=== PATIENT | female | born 1970 | race Caucasian/White ===

== ENCOUNTER 2017-11-08 22:20 | Emergency (ER) | payer BC, SELFPAY ==
[2017-11-08] MEDS ORDERED: Dexamethasone 4 MG TAB ONE (23:43)
[2017-11-08] MEDS ORDERED: Benzonatate 100 MG CAP ONE (23:43)
[2017-11-08] MEDS ORDERED: HYDROcodone/Acetaminophen 5/325 mg Tablet ONE (23:43)
[2017-11-08] MEDS ORDERED: Azithromycin 250 MG TAB ONE (23:45)
--- NOTE | 2017-11-08 23:56 | RAD ---
RADIOGRAPH CHEST 2 VIEWS: HISTORY: 47-year-old female with cough. FINDINGS: There is no air space density, pulmonary edema, pleural effusion, pneumothorax, or cardiomegaly. IMPRESSION: No acute cardiopulmonary findings. rae POS: [facility]
== END 2017-11-09 00:14 | disposition home or self-care (01) ==
LOC: MADERS 22:20
DX: J18.9 Pneumonia, unspecified organism (principal); Z87.891 Personal history of nicotine dependence
CPT/HCPCS: 71046; J8540

== ENCOUNTER 2018-03-02 12:58 | Emergency (ER) | payer BC ==
[2018-03-02 14:19] LABS: #Eosinphils 0.1 thou/uL (0.0-0.7); #Lymphocytes 1.4 thou/uL (1.20-3.40); #Monocytes 0.3 thou/uL (0.11-0.59); %Basophils 0.7 % (0.0-1.0); %Eosinophils 2.8 % (0.0-10.0); %Lymphocytes 27.9 % (21.0-51.0); %Monocytes 6.7 % (0.0-10.0); %Neutrophils 61.9 % (42.0-75.0); Hemoglobin 13.8 g/dL (12.0-16.0); Mean Corpuscular HGB CONC 31.2 g/dL (32.0-36.0); Mean Corpuscular Hemoglobin 31.5 pg (27.0-31.0); Mean Platelet Volume 6.5 fL (7.4-10.4); Platelet Count 275 thou/uL (130-400); RBC Distribution Width 12.3 % (11.5-14.5); Red Blood Cell (RBC) Count 4.39 mill/uL (4.20-5.40); White Blood Cell (WBC) Count 4.9 thou/uL (4.8-10.8)
--- NOTE | 2018-03-02 14:29 | RAD ---
PA AND LATERAL CHEST: Date: 03/02/18 HISTORY: Cough. FINDINGS: Comparison made with exam of 11/08/17. The heart size is borderline. No focal areas of consolidation, pneumothoraces, ella pulmonary edema, or pleural effusions seen. IMPRESSION: No acute process. POS: [facility]
[2018-03-02 14:42] LABS: ALT (SGPT) 12 U/L (8-55); AST (SGOT) 14 U/L (5-34); Albumin 3.3 g/dL (3.5-5.0); Alkaline Phosphatase 98 U/L (40-150); Anion Gap 14 mmol/L (10-20); BUN (Urea Nitrogen) 12 mg/dL (7.0-18.7); Bilirubin, Total Less than 0.2 mg/dL (0.2-1.2); Calc. Creatinine Clearance 0 mL/min (70-130); Calcium 9.1 mg/dL (7.8-10.44); Carbon Dioxide 31 mmol/L (22-29); Chloride 102 mmol/L (98-107); Estimated GFR-MDRD 89; Globulin 3.2 g/dL (2.4-3.5); Glucose 107 mg/dL (70-105); Potassium 4.5 mmol/L (3.5-5.1); Protein, Total 6.5 g/dL (6.0-8.3); Sodium 142 mmol/L (136-145)
== END 2018-03-02 15:24 | disposition home or self-care (01) ==
LOC: MADERS 12:58
DX: J40 Bronchitis, not specified as acute or chronic (principal); Z87.891 Personal history of nicotine dependence
CPT/HCPCS: 36415; 71046; 80053; 84484; 85025; 87804; 93005; J7620

== ENCOUNTER 2018-06-18 20:26 | Emergency (ER) | payer BC ==
[2018-06-18] MEDS ORDERED: HYDROcodone/Acetaminophen 5/325 mg Tablet ONE (21:51)
[2018-06-18] MEDS ORDERED: Cyclobenzaprine 10 MG TAB ONE (21:52)
[2018-06-18] MEDS ORDERED: Ibuprofen 800 MG TAB ONE (21:52)
== END 2018-06-18 22:05 | disposition home or self-care (01) ==
LOC: MADERS 20:26
DX: S30.0XXA Contusion of lower back and pelvis, initial encounter (principal); J45.909 Unspecified asthma, uncomplicated; F17.210 Nicotine dependence, cigarettes, uncomplicated; Z79.51 Long term (current) use of inhaled steroids; Z79.899 Other long term (current) drug therapy; W06.XXXA Fall from bed, initial encounter
CPT/HCPCS: 99283

== ENCOUNTER 2018-10-03 19:25 | Emergency (ER) | payer BC ==
[2018-10-03 20:35] LABS: Bilirubin Negative (Negative); Blood, Urine Small (Negative); Clarity Clear (Clear); Glucose, Urine (Dipstick) Negative (Negative); Leukocyte Negative (Negative); Nitrite Negative (Negative); Protein, Urine (Dipstick) > or equal to 300 mg/dL (Neg-Trace); Urobilinogen 0.2 mg/dL (Less than 2)
[2018-10-03 20:51] LABS: #Basophils 0.1 thou/uL (0.0-0.2); #Eosinphils 0.1 thou/uL (0.0-0.7); #Lymphocytes 1.5 thou/uL (1.20-3.40); #Monocytes 0.4 thou/uL (0.11-0.59); #Neutrophils 4.3 thou/uL (1.40-6.50); %Basophils 1.1 % (0.0-1.0); %Eosinophils 1.9 % (0.0-10.0); %Lymphocytes 23.1 % (21.0-51.0); %Monocytes 6.7 % (0.0-10.0); %Neutrophils 67.1 % (42.0-75.0); Hemoglobin 14.5 g/dL (12.0-16.0); Mean Corpuscular Hemoglobin 30.5 pg (27.0-31.0); Mean Corpuscular Volume 95.3 fL (78.0-98.0); Mean Platelet Volume 6.1 fL (7.4-10.4); Platelet Count 283 thou/uL (130-400); RBC Distribution Width 12.4 % (11.5-14.5); Red Blood Cell (RBC) Count 4.76 mill/uL (4.20-5.40); White Blood Cell (WBC) Count 6.4 thou/uL (4.8-10.8)
[2018-10-03] MEDS ORDERED: Lidocaine Viscous Sol 2% 15 ml UD Cup ONE (20:51)
[2018-10-03] MEDS ORDERED: Mag-Al Plus 1200 MG/1200 MG/120 MG/30 ML UDCUP ONE (20:51)
[2018-10-03] MEDS ORDERED: Famotidine 20 MG TAB ONE (20:51)
[2018-10-03] MEDS ORDERED: Dicyclomine 10 MG CAP ONE (20:52)
[2018-10-03 20:53] LABS: Bacteria/HPF 1+ HPF (None Seen); RBC/HPF 0-3 HPF (0-3); WBC/HPF 0-3 HPF (0-3)
[2018-10-03] MEDS ORDERED: Ondansetron ODT 4 MG TAB ONE (20:54)
--- NOTE | 2018-10-03 20:56 | RAD ---
Chest one view HISTORY: Chest pain. COMPARISON: 05/11/2018. FINDINGS: Cardiac silhouette is magnified and enlarged. Pulmonary vasculature slightly engorged. Medi astinum is midline. No lobar consolidation or evidence of pneumothorax IMPRESSION: Cardiomegaly. Mild pulmonary vascular congestion.
[2018-10-03 21:01] LABS: ALT (SGPT) 13 U/L (8-55); AST (SGOT) 13 U/L (5-34); Albumin 3.4 g/dL (3.5-5.0); Alkaline Phosphatase 108 U/L (40-150); Anion Gap 13 mmol/L (10-20); BUN (Urea Nitrogen) 13 mg/dL (7.0-18.7); Bilirubin, Total 0.2 mg/dL (0.2-1.2); Calc. Creatinine Clearance 0 mL/min (70-130); Calcium 9.3 mg/dL (7.8-10.44); Carbon Dioxide 31 mmol/L (22-29); Chloride 101 mmol/L (98-107); Estimated GFR-MDRD 84; Globulin 3.4 g/dL (2.4-3.5); Glucose 94 mg/dL (70-105); Lipase 21 U/L (8-78); Potassium 4.4 mmol/L (3.5-5.1); Protein, Total 6.8 g/dL (6.0-8.3); Sodium 141 mmol/L (136-145)
== END 2018-10-03 22:10 | disposition home or self-care (01) ==
LOC: MADERS 19:25
DX: K21.9 Gastro-esophageal reflux disease without esophagitis (principal); J45.909 Unspecified asthma, uncomplicated; F17.210 Nicotine dependence, cigarettes, uncomplicated; Z79.51 Long term (current) use of inhaled steroids; Z79.899 Other long term (current) drug therapy
CPT/HCPCS: 71045; 80053; 81003; 81015; 83605; 83690; 83880; 84484; 85025; 93005; J0500; Q0162

== ENCOUNTER 2019-09-10 19:41 | Emergency (ER) | payer BC | END 2019-09-10 20:35 | disposition home or self-care (01) | LOC: MADERS 19:41 | DX: T16.1XXA Foreign body in right ear, initial encounter (principal); J45.909 Unspecified asthma, uncomplicated; F17.210 Nicotine dependence, cigarettes, uncomplicated; Z79.899 Other long term (current) drug therapy ==

== ENCOUNTER 2019-10-23 09:21 | Outpatient (CLI) | payer BC ==
[2019-10-23 09:47] LABS: #Eosinphils 0.1 thou/uL (0.0-0.7); #Lymphocytes 1.3 thou/uL (1.20-3.40); #Monocytes 0.3 thou/uL (0.11-0.59); #Neutrophils 2.9 thou/uL (1.40-6.50); %Basophils 0.9 % (0.0-1.0); %Eosinophils 1.7 % (0.0-10.0); %Lymphocytes 28.1 % (21.0-51.0); %Monocytes 5.6 % (0.0-10.0); %Neutrophils 63.7 % (42.0-75.0); Hemoglobin 15.2 g/dL (12.0-16.0); Mean Corpuscular HGB CONC 31.9 g/dL (32.0-36.0); Mean Corpuscular Hemoglobin 31.3 pg (27.0-31.0); Mean Corpuscular Volume 98.2 fL (78.0-98.0); Mean Platelet Volume 6.1 fL (7.4-10.4); Platelet Count 303 thou/uL (130-400); RBC Distribution Width 12.7 % (11.5-14.5); Red Blood Cell (RBC) Count 4.86 mill/uL (4.20-5.40); White Blood Cell (WBC) Count 4.6 thou/uL (4.8-10.8)
[2019-10-23 09:51] LABS: INR-International Normal Ratio 0.9; PTT 29.2 sec (22.9-36.1); Prothrombin Time 11.9 sec (12.0-14.7)
[2019-10-23 10:02] LABS: ALT (SGPT) 16 U/L (8-55); AST (SGOT) 15 U/L (5-34); Albumin 3.3 g/dL (3.5-5.0); Alkaline Phosphatase 93 U/L (40-110); Anion Gap 14 mmol/L (10-20); BUN (Urea Nitrogen) 12 mg/dL (7.0-18.7); Bilirubin, Total 0.2 mg/dL (0.2-1.2); Calc. Creatinine Clearance 0 mL/min (70-130); Carbon Dioxide 33 mmol/L (22-29); Chloride 99 mmol/L (98-107); Estimated GFR-MDRD 86; Globulin 3.6 g/dL (2.4-3.5); Glucose 97 mg/dL (70-105); Potassium 4.6 mmol/L (3.5-5.1); Protein, Total 6.9 g/dL (6.0-8.3); Sodium 141 mmol/L (136-145)
--- NOTE | 2019-10-23 10:51 | RAD ---
LUMBAR SPINE 4 VIEWS: HISTORY: Back pain. FINDINGS: Exam includes right and left oblique views. There is very severe rotary dextroscoliosis of the upper lumbar lower thoracic vertebral column with some extensive hypertrophic osteophytosis. The vertebrae are very poorly defined at the level of the T11 through L1 region. There may well be some associated developmental anomalous changes at this le dwight. Generalized disk-osteophytosis and facet arthrosis. IMPRESSION: Severe dextroscoliosis with rotational changes of the upper lumbar lower thoracic vertebral column wi th very poor definition of the vertebral bodies in this region, possibly related to developmental ano malous changes. Depending upon concern, a followup CT scan of the lumbar thoracic spine versus MRI e xamination of the lumbar and thoracic spine is recommended for further assessment. POS: [facility]
[2019-10-23 14:25] LABS: Hemoglobin A1c 5.8 % (4.0-6.0)
[2019-10-23 14:36] LABS: Follow-up Chemistry Comp? YES; Follow-up Result - Chemistry REPORT FAXED
== END 2019-10-23 09:22 | disposition home or self-care (01) ==
LOC: MADLAB 09:21
PROVIDERS: ATTEND Family Medicine
DX: M54.5 Low back pain (principal); R29.6 Repeated falls; M41.9 Scoliosis, unspecified; Z86.73 Personal history of transient ischemic attack (TIA), and cerebral infarction without residual deficits
CPT/HCPCS: 36415; 72110; 80053; 83036; 85025; 85610; 85730

== ENCOUNTER 2020-12-15 21:03 | Emergency (ER) | payer BC ==
[2020-12-15] MEDS ORDERED: Cyclobenzaprine 10 MG TAB ONE (21:56)
[2020-12-15] MEDS ORDERED: Ibuprofen 400 MG TAB ONE (21:56)
== END 2020-12-15 22:00 | disposition home or self-care (01) ==
LOC: MADERS 21:03
DX: M71.22 Synovial cyst of popliteal space [Baker], left knee (principal); M17.0 Bilateral primary osteoarthritis of knee; I10 Essential (primary) hypertension; E78.5 Hyperlipidemia, unspecified; J45.909 Unspecified asthma, uncomplicated; Z87.891 Personal history of nicotine dependence
CPT/HCPCS: 99283

== ENCOUNTER 2021-07-13 12:39 | Emergency (ER) | payer BC | END 2021-07-13 14:10 | disposition home or self-care (01) | LOC: MADERS 12:39 | DX: H60.92 Unspecified otitis externa, left ear (principal); R59.0 Localized enlarged lymph nodes; I10 Essential (primary) hypertension; E78.5 Hyperlipidemia, unspecified; J45.909 Unspecified asthma, uncomplicated; Z79.51 Long term (current) use of inhaled steroids; Z79.84 Long term (current) use of oral hypoglycemic drugs; Z79.899 Other long term (current) drug therapy; Z87.891 Personal history of nicotine dependence | CPT/HCPCS: 36416; 99283 ==

== ENCOUNTER 2024-02-03 15:05 | Inpatient (IN) | payer BC ==
[2024-02-04] MEDS ORDERED: LevoFLOXacin 500 MG TAB ONE (09:00)
[2024-02-04] MEDS ORDERED: Losartan 25 MG TAB ONE (09:00)
[2024-02-04] MEDS ORDERED: Ferrex 150 Plus (iron poly cmplx) PO ONE (09:00)
[2024-02-04] MEDS ORDERED: FLUoxetine HCl 20 MG CAP ONE (09:00)
[2024-02-04] MEDS ORDERED: Enoxaparin 40 MG (0.4 mL) SYRINGE ONE (09:00)
[2024-02-05] MEDS ORDERED: Sodium Bicarbonate Tab 325 MG TAB PER TUBE PRN (01:45)
[2024-02-05] MEDS ORDERED: Pancrelipase DR 12,000 1 CAP FS PRN (01:45)
[2024-02-05] MEDS ORDERED: Methocarbamol 500 MG TAB PO PRN (02:44)
[2024-02-05] MEDS ORDERED: Ibuprofen 200 MG TAB PO PRN (02:45)
[2024-02-05] MEDS: Enoxaparin 40 MG (0.4 mL) SYRINGE SC SCH (10:01)
[2024-02-05] MEDS: FLUoxetine HCl 20 MG CAP PO SCH (10:04)
[2024-02-05] MEDS: LevoFLOXacin 500 MG TAB PO SCH (10:04)
[2024-02-05] MEDS: Losartan 25 MG TAB PO SCH (10:04)
[2024-02-05] MEDS: Fluticasone Propionate Nasal Spray 16 gm Bottle NASAL SCH (10:05)
[2024-02-05] MEDS: Nystatin Powder 15 GM BOT TOP SCH (10:05)
[2024-02-05] MEDS: Senokot 8.6 MG TAB PO SCH (10:06)
[2024-02-05] MEDS: Polyethylene Glycol 3350 17 GM Packet PO SCH (10:06)
[2024-02-05] MEDS: Acetaminophen 325 MG TAB PO PRN (11:11)
[2024-02-05] MEDS ORDERED: HYDROcodone/Acetaminophen 5/325 mg Tablet PO PRN (21:24)
[2024-02-05] MEDS: HYDROcodone/Acetaminophen 5/325 mg Tablet PER TUBE PRN (21:39)
[2024-02-05] MEDS: Senokot 8.6 MG TAB PER TUBE SCH (21:40)
[2024-02-05] MEDS: Rosuvastatin 10 MG TAB PER TUBE SCH (21:40)
[2024-02-06] MEDS: LevoFLOXacin 500 MG TAB PER TUBE SCH (05:37)
[2024-02-06] MEDS: FLUoxetine HCl 20 MG CAP PER TUBE SCH (08:39)
[2024-02-06] MEDS: Losartan 25 MG TAB PER TUBE SCH (08:39)
[2024-02-06] MEDS: Polyethylene Glycol 3350 17 GM Packet PER TUBE SCH (08:40)
[2024-02-06] MEDS: Acetaminophen 160 MG (5 ML) UDCUP PER TUBE PRN (10:22)
[2024-02-07 06:50] LABS: Band 4 % (5-11); Eosinophils 1 % (0-10); Hematocrit 28.4 % (36.0-47.0); Hemoglobin 9.1 g/dL (12.0-16.0); Lymphocytes 18 % (21-51); MDiff Complete? YES; Mean Corpuscular HGB CONC 32.2 g/dL (32.0-36.0); Mean Corpuscular Hemoglobin 31.5 pg (27.0-31.0); Mean Corpuscular Volume 97.7 fl (78.0-98.0); Mean Platelet Volume 7.2 fL (7.4-10.4); Monocytes 8 % (0-10); Neutrophil 69 % (42-75); Platelet Count 184 10x3/uL (130-400); RBC Distribution Width 16.7 % (11.5-14.5); White Blood Cell (WBC) Count 6.8 10x3/uL (4.8-10.8)
[2024-02-08] MEDS: POLYSACCHARIDE IRON COMPLEX PO SCH (15:48)
[2024-02-09] MEDS: Ferrous Sulfate 300 MG (5 mL) UDCUP PER TUBE SCH (09:41)
[2024-02-09] MEDS ORDERED: Polyethylene Glycol 3350 17 GM Packet PER TUBE PRN (12:19)
[2024-02-09] MEDS ORDERED: Senokot 8.6 MG TAB PER TUBE PRN (12:20)
[2024-02-09] MEDS: Sulfameth/Trimethoprim DS 800-160mg TAB PO SCH (21:59)
[2024-02-10 06:06] VITALS: BMI 34.6
[2024-02-13] MEDS: Fluconazole 100 MG TAB PO SCH (09:41)
[2024-02-14] MEDS: Ibuprofen 100 MG/5 ML UDCUP PER TUBE PRN (03:49)
[2024-02-15] MEDS: HYDROcodone/Acetaminophen 10/325 mg Tablet PER TUBE PRN (20:11)
[2024-02-15] MEDS: Sulfameth/Trimethoprim DS 800-160mg TAB PO SCH (20:12)
[2024-02-16] MEDS: Sulfameth/Trimethoprim DS 800-160mg TAB PO SCH (05:09)
[2024-02-16] MEDS: Fluconazole 100 MG TAB PO SCH (05:10)
[2024-02-16] MEDS: Enoxaparin 40 MG (0.4 mL) SYRINGE SC SCH (05:10)
[2024-02-16] MEDS: Losartan 25 MG TAB PER TUBE SCH (05:11)
[2024-02-16] MEDS: FLUoxetine HCl 20 MG CAP PER TUBE SCH (05:11)
[2024-02-17] MEDS: Enoxaparin 40 MG (0.4 mL) SYRINGE SC SCH (08:29)
[2024-02-17] MEDS: Losartan 25 MG TAB PER TUBE SCH (08:30)
[2024-02-17] MEDS: Fluconazole 100 MG TAB PO SCH (08:31)
[2024-02-17] MEDS: FLUoxetine HCl 20 MG CAP PER TUBE SCH (08:32)
[2024-02-22] MEDS: HYDROcodone/Acetaminophen 5/325 mg Tablet PER TUBE PRN (15:11)
[2024-02-22] MEDS: Albuterol 200 PUFF (6.7GM INHALER) INH PRN (16:36)
[2024-02-23 05:24] LABS: Hematocrit 29.6 % (36.0-47.0); Hemoglobin 9.3 g/dL (12.0-16.0); Platelet Count 273 10x3/uL (130-400)
[2024-02-23] MEDS: Ondansetron ODT 4 MG TAB PO PRN (08:20)
[2024-02-24 07:49] VITALS: BMI 33.0
[2024-02-29 07:30] VITALS: BP 106/61; TEMP 98.5
[2024-02-29] MEDS: Methocarbamol 500 MG TAB PER TUBE PRN (08:30)
== END 2024-02-29 17:29 | disposition home or self-care (01) | DRG 945 ==
LOC: MADMS 15:05
PROVIDERS: ADMIT Family Medicine; ATTEND Family Medicine
PROC: F07Z9ZZ Gait Training/Functional Ambulation Treatment (ICD-10-PCS; principal; 2024-02-22)
DX: R53.81 Other malaise (principal); C15.9 Malignant neoplasm of esophagus, unspecified; M19.90 Unspecified osteoarthritis, unspecified site; Z98.84 Bariatric surgery status; K21.9 Gastro-esophageal reflux disease without esophagitis; E78.5 Hyperlipidemia, unspecified; E11.9 Type 2 diabetes mellitus without complications; G47.33 Obstructive sleep apnea (adult) (pediatric); F32.A Depression, unspecified; R26.89 Other abnormalities of gait and mobility; Z87.442 Personal history of urinary calculi; Z79.899 Other long term (current) drug therapy
CPT/HCPCS: 36415; 36416; 71046; 82565; 85014; 85018; 85025; 85049; 87070; 87077; 87186; 87205; J1650; Q0162